=== PATIENT | male | born 1970 | race Caucasian/White ===

== ENCOUNTER 2016-11-30 14:32 | Emergency (ER) | payer OTHER ==
[~2016-11-30] VITALS: Ht 175.3 cm; Wt 117.9 kg
[2016-11-30 14:48] VITALS: BP 168/102
[2016-11-30] MEDS ORDERED: HYDROcodone/APAP 5/325MG 1 TAB TABLET PO ONE (15:15)
[2016-11-30] MEDS ORDERED: ONDANSETRON ODT 4 MG TAB.RAPDIS. PO ONE (15:15)
--- NOTE | 2016-11-30 15:33 | PHYS DOC ---
Past Medical History Past Medical History: No Pertinent History Past Surgical History: Other Additional Past Surgical Histo: HERNIA Alcohol Use: Occasionally Drug Use: None Adult General Chief Complaint Chief Complaint: LACERATION/AVULSION HPI HPI Patient is a 46 year old male with no significant medical history who presents today with forehead laceration after being hit in the head by a falling 2 x 4. Patient denies any loss of consciousness. He states he has slight dizziness. Denies any nausea vomiting. Review of Systems Review of Systems Constitutional: Denies fever or chills [] Eyes: Denies change in visual acuity, redness, or eye pain [] HENT: Denies nasal congestion or sore throat [] Respiratory: Denies cough or shortness of breath [] Cardiovascular: No additional information not addressed in HPI [] GI: Denies abdominal pain, nausea, vomiting, bloody stools or diarrhea [] : Denies dysuria or hematuria [] Musculoskeletal: Denies back pain or joint pain [] Integument: Forehead laceration Neurologic: head contusion [] Current Medications Current Medications Current Medications Medications (Trade) Dose Ordered Sig/Jones Start Time Stop Time Status Last Admin Dose Admin Acetaminophen/ Hydrocodone Bitart (Lortab 5/325) 1 tab 1X ONCE 11/30/16 15:15 11/30/16 15:16 DC 11/30/16 15:17 1 TAB Ondansetron HCl (Zofran Odt) 4 mg 1X ONCE 11/30/16 15:15 11/30/16 15:16 DC 11/30/16 15:16 4 MG Allergies Allergies Allergies Coded Allergies Type Severity Reaction Last Updated Verified No Known Drug Allergies 11/30/16 No Physical Exam Physical Exam Constitutional: Well developed, well nourished, no acute distress, non-toxic appearance. [] HENT: Normocephalic, atraumatic, bilateral external ears normal, oropharynx moist, no oral exudates, nose normal. [] Eyes: PERRLA, EOMI, conjunctiva normal, no discharge. [] Neck: Normal range of motion, no tenderness, supple, no stridor. [] Cardiovascular:Heart rate regular rhythm, no murmur [] Lungs & Thorax: Bilateral breath sounds clear to auscultation [] Abdomen: Bowel sounds normal, soft, no tenderness, no masses, no pulsatile masses. [] Skin:Right forehead with a laceration approximately 3 cm long. Bleeding is well controlled. Back: No tenderness, no CVA tenderness. [] Extremities: No tenderness, no cyanosis, no clubbing, ROM intact, no edema. [] Neurologic: Alert and oriented X 3, normal motor function, normal sensory function, no focal deficits noted. [] Psychologic: Affect normal, judgement normal, mood normal. Cranial nerves II- XII intact Current Patient Data Vital Signs Vital Signs Date Time Temp Pulse Resp B/P (MAP) Pulse Ox O2 Delivery O2 Flow Rate FiO2 11/30/16 14:48 98.4 90 16 97 Room Air 98.4 EKG EKG [] Radiology/Procedures Radiology/Procedures Indication: Forehead laceration Procedure: The patient was placed in the appropriate position and anesthesia around the laceration was not E Sadler. Laceration was explored for foreign objects, none was found, the laceration was cleaned with 10 ML of normal saline here and laceration was closed with 3 aiden and left open to air Total repaired wound length: Approximately 3 cm long Other Items:none The patient tolerated the procedure well Complications: none Course & Med Decision Making Course & Med Decision Making Pertinent Labs and Imaging studies reviewed. (See chart for details) Patient has right forehead laceration from a contusion type of injury. Laceration was closed with aiden as noted in procedures by me. Tetanus is up- to-date. Provided wound care instructions as well as return precautions. Discharged in stable condition. Dragon Disclaimer Dragon Disclaimer This electronic medical record was generated, in whole or in part, using a voice recognition dictation system. Departure Departure Impression: Primary Impression: Laceration of head Additional Impression: Head contusion Disposition: 01 HOME, SELF-CARE Condition: STABLE Patient Instructions: Contusion, [id number], Laceration Care, Adult Additional Instructions: You were seen for forehead contusion with a laceration. Ice the affected area. Take Tylenol as needed for pain. You can shower. Do not soak the laceration site. Monitor the area for signs and symptoms of infection including but not limited to increased redness warmth, yellow drainage from the area and return to the ED if they occur or follow-up with your own doctor. Come back to the ED at any point he developed confusion, excessive sleepiness, uncontrolled nausea vomiting. Follow-up with your doctor or the emergency room in 7-10 days for staple removal. Problem Qualifiers Primary Impression: Laceration of head Encounter type: initial encounter Location of open wound of head: scalp Foreign body presence: without foreign body Qualified Codes: S01.01XA - Laceration without foreign body of scalp, initial encounter Additional Impression: Head contusion Encounter type: initial encounter Contusion of head detail: scalp Qualified Codes: S00.03XA - Contusion of scalp, initial encounter JAIRO OSBORNE APRN Nov 30, 2016 15:33
== END 2016-11-30 15:43 | disposition home or self-care (01) ==
LOC: ER 14:32
DX: S01.81XA Laceration without foreign body of other part of head, initial encounter (principal); S00.03XA Contusion of scalp, initial encounter; W18.09XA Striking against other object with subsequent fall, initial encounter; Y93.89 Activity, other specified; Y99.8 Other external cause status; Y92.89 Other specified places as the place of occurrence of the external cause
CPT/HCPCS: 12013; 99283; Q0162